=== PATIENT | male | born 1975 ===

== ENCOUNTER 2016-11-10 09:02 | Inpatient (IN) | payer OTHER ==
[2016-11-10 09:10] VITALS: BMI 31.9
[2016-11-10 10:04] LABS: BASO # 0.1 K/uL (0.0-0.2); BASO % 0.5 % (0.0-2.0); EOS # 0.5 K/uL (0.0-0.7); EOS % 3.4 % (0.0-4.0); HEMATOCRIT 45.4 % (35.0-51.0); LYMPH # 1.7 K/uL (1.0-4.3); LYMPH % 11.7 % (20.0-40.0); MEAN CELL VOLUME 87.7 fl (80.0-94.0); MEAN CORPUSCULAR HEMOGLOBIN 29.4 pg (27.0-31.0); MEAN CORPUSCULAR HGB CONC 33.5 g/dL (33.0-37.0); MEAN PLATELET VOLUME 9.7 fl (7.2-11.7); MONO # 1.4 K/uL (0.0-0.8); MONO % 9.6 % (0.0-10.0); NEUT # 10.6 K/uL (1.8-7.0); NEUT % 74.8 % (50.0-75.0); NRBC % 0.1 % (0.0-0.0); WHITE BLOOD COUNT 14.2 K/uL (4.8-10.8)
[2016-11-10] MEDS ORDERED: Sodium Chloride 0.9% 50 ML IV ONE (10:10)
[2016-11-10] MEDS ORDERED: Iohexol 300 100 ML IJ ONE (10:10)
--- NOTE | 2016-11-10 10:12 | ED PDOC ---
HPI: Abdomen Time Seen by Provider: 11/10/16 09:16 Chief Complaint (Nursing): Abdominal Pain Chief Complaint (Provider): Abdominal pain History Per: Patient History/Exam Limitations: no limitations Onset/Duration Of Symptoms: Days, Waxing/Waning, Persistent Current Symptoms Are (Timing): Still Present Quality Of Discomfort: "Pain" Associated Symptoms: denies: Fever, Chills, Nausea, Vomiting, Diarrhea, Constipation, Urinary Symptoms Additional History Per: Patient Additional Complaint(s): The patient is a 41yo male, presents to the ED for evaluation of abdominal pain , mid-left sided, worsening and present constantly for the pas week. He denies any associated nausea, vomiting, diarrhea, constipation, fever, chills. He also denies any dysuria, hematuria, and offers no additional medical complaints. Past Medical History Reviewed: Historical Data, Nursing Documentation, Vital Signs Vital Signs: Last Vital Signs Temp 98.7 F 11/12/16 07:41 Pulse 61 11/12/16 07:41 Resp 18 11/12/16 07:41 BP 111/68 11/12/16 07:41 Pulse Ox 96 11/12/16 07:41 - Surgical History Surgical History: No Surg Hx - Family History Family History: States: Unknown Family Hx - Social History Current smoker - smoking cessation education provided: No Alcohol: Occasional Drugs: Denies - Home Medications Home Medications: Ambulatory Orders Medication Instructions Recorded No Known Home Med 11/10/16 - Allergies Allergies/Adverse Reactions: Allergies Allergy/AdvReac Type Severity Reaction Status Date / Time No Known Allergies Allergy Verified 11/10/16 09:20 Review of Systems ROS Statement: Except As Marked, All Systems Reviewed And Found Negative Constitutional: Negative for: Fever, Chills Gastrointestinal: Positive for: Abdominal Pain. Negative for: Nausea, Vomiting , Diarrhea, Constipation Genitourinary Male: Negative for: Dysuria, Frequency, Hematuria Physical Exam - Reviewed Nursing Documentation Reviewed: Yes Vital Signs Reviewed: Yes - Physical Exam Appears: Positive for: Non-toxic, No Acute Distress Head Exam: Positive for: ATRAUMATIC, NORMAL INSPECTION, NORMOCEPHALIC Skin: Positive for: Warm Neck: Positive for: Supple Cardiovascular/Chest: Positive for: Regular Rate, Rhythm Respiratory: Positive for: Normal Breath Sounds. Negative for: Respiratory Distress Gastrointestinal/Abdominal: Positive for: Soft, Tenderness (generalized tenderness to left periumbilical region) Neurologic/Psych: Positive for: Alert, Oriented. Negative for: Motor/Sensory Deficits - Laboratory Results Result Diagrams: 11/12/16 05:40 11/12/16 05:40 - ECG O2 Sat by Pulse Oximetry: 97 (A) Pulse Ox Interpretation: Normal Medical Decision Making Medical Decision Making: Time: 1000 Impression: UTI, diverticulitis Plan: -- CT AP w/ contrast -- Labs -- EKG -- Morphine 2 mg Reassess Time: 1100 Patient to be placed in ED obs pending ER workup. Scribe Attestation: Documented by Alyce Yeung acting as a scribe for Nathalie Owen MD. Provider Attestation: All medical record entries made by the Scribe were at my direction and personally dictated by me. I have reviewed the chart and agree that the record accurately reflects my personal performance of the history, physical exam, medical decision making, and the department course for this patient. I have also personally directed, reviewed, and agree with the discharge instructions and disposition. ED OBSERVATION Date of observation admission: 11/10/16 Time of observation admission: 11:00 - Progress Note Progress Note: 11/10/16 12:30 Patient resting in room, no acute distress. 11/10/16 14:[address] scan, currently pending read. 11/10/16 15:10 CT AP IMPRESSION: Acute diverticulitis in the proximal sigmoid colon with significant pericolonic inflammatory changes. No evidence of micro perforation or abscess. Case discussed with Dr. Truong, patient to be admitted to OBS-Med/Surg. Disposition - Clinical Impression Clinical Impression: Acute diverticulitis - Disposition Disposition Time: 15:11 Condition: STABLE - Pt Status Changed To: Hospital Disposition Of: Observation - POA Present On Arrival: None
[2016-11-10 10:24] LABS: ALB/GLOB RATIO 1.4 (1.0-2.1); ALKALINE PHOSPHATASE 92 U/L (38-126); ALT/SGPT 45 U/L (21-72); AST/SGOT 29 U/L (17-59); BLOOD UREA NITROGEN 14 mg/dl (9-20); CALCIUM 9.6 mg/dL (8.4-10.2); CARBON DIOXIDE 22 mmol/L (22-30); CHLORIDE 103 mmol/L (98-107); GFR AFRICAN-AMERICAN > 60; GLUCOSE,RANDOM 113 mg/dL (75-110); LIPASE 118 U/L (23-300); POTASSIUM 4.1 MMOL/L (3.6-5.0); SODIUM 142 mmol/l (132-148); TOTAL PROTEIN 7.9 G/DL (6.3-8.2)
[2016-11-10 10:46] LABS: RBC URINE 1 /hpf (0-3); URINE BILIRUBIN NEGATIVE (NEGATIVE); URINE BLOOD NEGATIVE (NEGATIVE); URINE COLOR YELLOW (YELLOW); URINE GLUCOSE (UA) NEG (Normal); URINE KETONE NEGATIVE (NEGATIVE); URINE LEUKOCYTE ESTERASE NEG Leu/uL (Negative); URINE PROTEIN NEGATIVE (NEGATIVE); URINE UROBILINOGEN 0.2-1.0 mg/dL (0.2-1.0); WBC URINE < 1 /hpf (0-5)
[2016-11-10] MEDS ORDERED: Ciprofloxacin 400mg/200ml D5W 400 MG/200 ML BAG IV STA (15:04)
[2016-11-10] MEDS ORDERED: metroNIDAZOLE 500mg/100ml NS 100 ML IV STA (15:04)
--- NOTE | 2016-11-10 15:07 | CT ---
PROCEDURE: CT Abdomen and Pelvis with contrast HISTORY: Left-sided abdominal pain COMPARISON: None. TECHNIQUE: CT scan of the abdomen and pelvis was performed after intravenous administration of contrast. Oral contrast was not administered. Coronal and sagittal reformatted images were obtained. Contrast dose: 95 cc Omnipaque 300 Radiation dose: Total exam DLP = 1143.03 mGy-cm. This CT exam was performed using one or more of the following dose reduction techniques: Automated exposure control, adjustment of the mA and/or kV according to patient size, and/or use of iterative reconstruction technique. FINDINGS: LOWER THORAX: There is bibasilar subsegmental atelectasis. LIVER: The liver is normal in size and there is diffuse fatty infiltration. No gross lesion or ductal dilatation. GALLBLADDER AND BILE DUCTS: The gallbladder is well distended with There are no calcified gallstones, wall thickening or pericholecystic fluid. PANCREAS: The pancreas is normal in size and there is homogeneous enhancement without mass or ductal dilatation. SPLEEN: The spleen is normal in size and there is homogeneous enhancement without focal lesion. ADRENALS: Both adrenal glands are normal in size without discrete nodule. KIDNEYS AND URETERS: Both kidneys are normal in size and there is homogeneous enhancement without hydronephrosis or focal mass. VASCULATURE: No aortic aneurysm. BOWEL: The small bowel loops are normal in caliber. There is left colonic diverticulosis. There is severe circumferential mural thickening in the proximal sigmoid colon with significant pericolonic inflammatory changes. There is mild pericolonic fluid without micro perforation or drainable abscess. There is large amount of stool in the ascending colon with fecalization of distal small bowel contents and large amount of stool in the distal sigmoid colon. . APPENDIX: Normal appendix. PERITONEUM: Unremarkable. No free fluid. No free air. LYMPH NODES: There are enlarged left mesenteric lymph nodes, likely reactive. BLADDER: Grossly normal in appearance. REPRODUCTIVE: The prostate gland is normal in size. BONES: No acute fracture. Within normal limits for the patient's age. OTHER FINDINGS: None. IMPRESSION: Acute diverticulitis in the proximal sigmoid colon with significant pericolonic inflammatory changes. No evidence of micro perforation or abscess.
[2016-11-10] MEDS ORDERED: Ciprofloxacin 400mg/200ml D5W 400 MG/200 ML BAG IVPB ONE (15:24)
[2016-11-10] MEDS: Sodium Chloride 0.9% 1,000 ML IV SCH (22:37)
[2016-11-10] MEDS: Ciprofloxacin 400mg/200ml D5W 400 MG/200 ML BAG IVPB SCH (23:15)
[2016-11-11 06:16] LABS: HEMATOCRIT 44.4 % (35.0-51.0); MEAN CELL VOLUME 88.2 fl (80.0-94.0); MEAN CORPUSCULAR HEMOGLOBIN 28.9 pg (27.0-31.0); MEAN CORPUSCULAR HGB CONC 32.8 g/dL (33.0-37.0); RED CELL DISTRIBUTION WIDTH 14.2 % (11.5-14.5); WHITE BLOOD COUNT 13.2 K/uL (4.8-10.8)
[2016-11-11 06:32] LABS: ALB/GLOB RATIO 1.3 (1.0-2.1); ALKALINE PHOSPHATASE 80 U/L (38-126); ALT/SGPT 39 U/L (21-72); AST/SGOT 19 U/L (17-59); BLOOD UREA NITROGEN 10 mg/dl (9-20); CALCIUM 9.1 mg/dL (8.4-10.2); CARBON DIOXIDE 27 mmol/L (22-30); CHLORIDE 100 mmol/L (98-107); GFR AFRICAN-AMERICAN > 60; GLUCOSE,RANDOM 118 mg/dL (75-110); POTASSIUM 3.8 MMOL/L (3.6-5.0); SODIUM 140 mmol/l (132-148); TOTAL PROTEIN 7.4 G/DL (6.3-8.2)
[2016-11-11] MEDS: Sodium Chloride 0.9% 1,000 ML IV SCH (08:37)
--- NOTE | 2016-11-11 08:41 | CARD ---
APPROVED REPORT EKG Measurement Heart [id number] <Conclusion> Normal sinus rhythm Normal ECG
[2016-11-11] MEDS: Ciprofloxacin 400mg/200ml D5W 400 MG/200 ML BAG IVPB SCH ×2 (08:50→20:35)
--- NOTE | 2016-11-11 14:16 | CP.PCM.HP ---
<Jose Orosco - Last Filed: 11/11/16 14:17> History of Present Illness - History of Present Illness History of Present Illness: 41 yo male with unremarkable PMHx presented to the [facility] ED for evaluation of abdominal pain. The pain started about 1 week ago and has been worsening. It is primairly located around the LLQ/LUQ and 8/10. It is nonradaiting. Crampy in character. Alleviated with rest. Exacerbated with movement. No associated fever/ chills, CP/SOB/palpitations, N/V/D/C urinary symptoms. Present on Admission - Present on Admission Any Indicators Present on Admission: No Review of Systems - Review of Systems Review of Systems: as per HPI Past Patient History - Infectious Disease Hx of Infectious Diseases: None - Past Medical History & Family History Past Medical History?: No - Past Social History Smoking Status: Never Smoked - CARDIAC Hx Cardiac Disorders: No - PULMONARY Hx Respiratory Disorders: No - NEUROLOGICAL Hx Neurological Disorder: No - HEENT Hx HEENT Problems: No - RENAL Hx Chronic Kidney Disease: No - ENDOCRINE/METABOLIC Hx Endocrine Disorders: No - HEMATOLOGICAL/ONCOLOGICAL Hx Blood Disorders: No - INTEGUMENTARY Hx Dermatological Problems: No - MUSCULOSKELETAL/RHEUMATOLOGICAL Hx Musculoskeletal Disorders: No Hx Falls: No - GASTROINTESTINAL Hx Gastrointestinal Disorders: No - GENITOURINARY/GYNECOLOGICAL Hx Genitourinary Disorders: No - PSYCHIATRIC Hx Psychophysiologic Disorder: No Hx Substance Use: No - SURGICAL HISTORY Hx Surgeries: No - ANESTHESIA Hx Anesthesia: No Meds Allergies/Adverse Reactions: Allergies Allergy/AdvReac Type Severity Reaction Status Date / Time No Known Allergies Allergy Verified 11/10/16 09:20 Physical Exam - Constitutional Appears: Non-toxic, No Acute Distress - Eye Exam Eye Exam: EOMI. absent: Conjunctival injection, Scleral icterus Pupil Exam: PERRL - ENT Exam ENT Exam: Mucous Membranes Moist - Respiratory Exam Respiratory Exam: Clear to Auscultation Bilateral, NORMAL BREATHING PATTERN. absent: Rales, Rhonchi, Wheezes - Cardiovascular Exam Cardiovascular Exam: REGULAR RHYTHM, RRR, +S1, +S2. absent: Gallop, JVD, Rubs, Systolic Murmur - GI/Abdominal Exam GI & Abdominal Exam: Guarding, Normal Bowel Sounds, Soft, Tenderness. absent: Distended, Firm, Hernia, Rebound, Rigid - Extremities Exam Extremities exam: Positive for: normal inspection, pedal pulses present. Negative for: pedal edema, tenderness - Neurological Exam Neurological exam: Alert, CN II-XII Intact, Oriented x3 - Skin Skin Exam: Dry, Intact, Normal Color, Warm Results - Vital Signs Recent Vital Signs: Last Vital Signs Temp 98.6 F 11/11/16 08:29 Pulse 82 11/11/16 08:29 Resp 20 11/11/16 08:29 BP 129/73 11/11/16 08:29 Pulse Ox 95 11/11/16 08:29 - Labs Result Diagrams: 11/11/16 05:45 11/11/16 05:45 Labs: Laboratory Results - last 24 hr 11/11/16 11/11/16 05:45 05:45 WBC 13.2 H RBC 5.04 Hgb 14.6 Hct 44.4 MCV 88.2 MCH 28.9 MCHC 32.8 L RDW 14.2 Plt Count 142 Sodium 140 Potassium 3.8 Chloride 100 Carbon Dioxide 27 Anion Gap 17 BUN 10 Creatinine 0.8 Est GFR ( Amer) > 60 Est GFR (Non-Af Amer) > 60 Random Glucose 118 H Calcium 9.1 Total Bilirubin 1.0 AST 19 ALT 39 Alkaline Phosphatase 80 Total Protein 7.4 Albumin 4.1 Globulin 3.3 Albumin/Globulin Ratio 1.3 Assessment & Plan (1) Diverticulitis Assessment and Plan: uncomplicated diverticulitis IV Hydration IV Abx as ordered (cipro/flagyl) Pain management advance diet (CLD) as tolerated monitor vitals serial CBC/CMP Case discussed and pt examined with attending. Status: Acute <Truong,Malcolm K - Last Filed: 11/11/16 16:31> Results - Vital Signs Recent Vital Signs: Last Vital Signs Temp 98.7 F 11/11/16 16:19 Pulse 71 11/11/16 16:19 Resp 20 11/11/16 16:19 BP 117/71 11/11/16 16:19 Pulse Ox 96 11/11/16 16:19 - Labs Result Diagrams: 11/11/16 05:45 11/11/16 05:45 Labs: Laboratory Results - last 24 hr 11/11/16 11/11/16 05:45 05:45 WBC 13.2 H RBC 5.04 Hgb 14.6 Hct 44.4 MCV 88.2 MCH 28.9 MCHC 32.8 L RDW 14.2 Plt Count 142 Sodium 140 Potassium 3.8 Chloride 100 Carbon Dioxide 27 Anion Gap 17 BUN 10 Creatinine 0.8 Est GFR ( Amer) > 60 Est GFR (Non-Af Amer) > 60 Random Glucose 118 H Calcium 9.1 Total Bilirubin 1.0 AST 19 ALT 39 Alkaline Phosphatase 80 Total Protein 7.4 Albumin 4.1 Globulin 3.3 Albumin/Globulin Ratio 1.3 Assessment & Plan - Assessment and Plan (Free Text) Assessment: Patient was personally seen and examined by me in rounds with residents. Available labs and diagnostic data reviewed. Case, Patient's condition and management plan Discussed with residents in rounds. Agree with resident's progress note. Plan: As ordered.
[2016-11-12] MEDS: Sodium Chloride 0.9% 1,000 ML IV SCH (00:09)
[2016-11-12 07:12] LABS: HEMATOCRIT 44.4 % (35.0-51.0); MEAN CELL VOLUME 88.9 fl (80.0-94.0); MEAN CORPUSCULAR HEMOGLOBIN 29.5 pg (27.0-31.0); MEAN CORPUSCULAR HGB CONC 33.2 g/dL (33.0-37.0); WHITE BLOOD COUNT 8.8 K/uL (4.8-10.8)
[2016-11-12 07:23] LABS: BLOOD UREA NITROGEN 10 mg/dl (9-20); CALCIUM 9.5 mg/dL (8.4-10.2); CARBON DIOXIDE 28 mmol/L (22-30); CHLORIDE 103 mmol/L (98-107); GFR AFRICAN-AMERICAN > 60; GLUCOSE,RANDOM 91 mg/dL (75-110); POTASSIUM 5.1 MMOL/L (3.6-5.0); SODIUM 144 mmol/l (132-148)
[2016-11-12] MEDS: Ciprofloxacin 400mg/200ml D5W 400 MG/200 ML BAG IVPB SCH ×2 (09:36→21:23)
--- NOTE | 2016-11-12 15:46 | PN ---
DATE: 11/12/2016 SUBJECTIVE: The patient is seen and examined. Interim events noted. Consults noted and appreciated. The patient remains in regular medical floor, feels better, abdominal pain. No nausea, vomiting, diarrhea or any blood in stool. PHYSICAL EXAMINATION GENERAL: The patient is in no acute distress. VITAL SIGNS: Stable. HEART: S1 and S2, normal and regular. LUNGS: Good bilateral air entry. ABDOMEN: Soft and nontender. Abdominal exam shows little sensitivity on left lower quadrant, but no sign of acute abdomen. No guarding, no rigidity, no rebound. EXTREMITIES: No edema. No calf swelling. No tenderness. No acute ischemia. CENTRAL NERVOUS SYSTEMS: Exam is essentially unchanged. DIAGNOSTIC DATA: Available diagnostic data reviewed. IMPRESSION: Overall, the patient's general medical condition is stable and improving. PLAN: As ordered. Malcolm Truong MD
[2016-11-13 07:53] LABS: ALB/GLOB RATIO 1.2 (1.0-2.1); ALKALINE PHOSPHATASE 77 U/L (38-126); ALT/SGPT 34 U/L (21-72); AST/SGOT 19 U/L (17-59); BILIRUBIN,TOTAL 0.8 mg/dl (0.2-1.3); BLOOD UREA NITROGEN 13 mg/dl (9-20); CALCIUM 9.9 mg/dL (8.4-10.2); CARBON DIOXIDE 27 mmol/L (22-30); CHLORIDE 102 mmol/L (98-107); GFR AFRICAN-AMERICAN > 60; GLUCOSE,RANDOM 91 mg/dL (75-110); HEMATOCRIT 46.7 % (35.0-51.0); MEAN CELL VOLUME 87.9 fl (80.0-94.0); MEAN CORPUSCULAR HEMOGLOBIN 29.3 pg (27.0-31.0); MEAN CORPUSCULAR HGB CONC 33.3 g/dL (33.0-37.0); POTASSIUM 4.1 MMOL/L (3.6-5.0); RED CELL DISTRIBUTION WIDTH 13.6 % (11.5-14.5); SODIUM 144 mmol/l (132-148); TOTAL PROTEIN 7.9 G/DL (6.3-8.2); WHITE BLOOD COUNT 7.8 K/uL (4.8-10.8)
[2016-11-13] MEDS: Ciprofloxacin 400mg/200ml D5W 400 MG/200 ML BAG IVPB SCH ×2 (08:42→21:02)
--- NOTE | 2016-11-13 15:23 | CP.PCM.CON ---
<Alirio Nevarez - Last Filed: 11/13/16 15:19> History of Present Illness - History of Present Illness History of Present Illness: PGY4 Initial GI consult Rusty Palencia is a 41 yo male with no sig PMHx presented to the [facility] ED for evaluation of abdominal pain. The pain started about 1 week ago and has been worsening. It is primarily located around the LLQ/LUQ and he initially rated it 8/10. It is nonradaiting and describes it as Crampy in character.Denies any aggravating or alleviating factors. No associated fever/chills. Pt states that he has not has a BM in 3 days, but prior to that has had daily BM. Denies any BRBPR, melena or mucus. CT abd w/ IV contrast revealed uncomplicated sigmoid diverticultitis. Pt is on abx and tolerating clears. PMHx: Denies PSHX: Denies Family hx: Denies any hx of colon ca Endoscopy hx: none Past Patient History - Infectious Disease Hx of Infectious Diseases: None - Past Medical History & Family History Past Medical History?: No - Past Social History Alcohol: Occasional Drugs: Denies - CARDIAC Hx Cardiac Disorders: No - PULMONARY Hx Respiratory Disorders: No - NEUROLOGICAL Hx Neurological Disorder: No - HEENT Hx HEENT Problems: No - RENAL Hx Chronic Kidney Disease: No - ENDOCRINE/METABOLIC Hx Endocrine Disorders: No - HEMATOLOGICAL/ONCOLOGICAL Hx Blood Disorders: No - INTEGUMENTARY Hx Dermatological Problems: No - MUSCULOSKELETAL/RHEUMATOLOGICAL Hx Musculoskeletal Disorders: No Hx Falls: No - GASTROINTESTINAL Hx Gastrointestinal Disorders: No - GENITOURINARY/GYNECOLOGICAL Hx Genitourinary Disorders: No - PSYCHIATRIC Hx Psychophysiologic Disorder: No Hx Substance Use: No - SURGICAL HISTORY Hx Surgeries: No - ANESTHESIA Hx Anesthesia: No Meds Allergies/Adverse Reactions: Allergies Allergy/AdvReac Type Severity Reaction Status Date / Time No Known Allergies Allergy Verified 11/10/16 09:20 - Medications Medications: Current Medications Ciprofloxacin (Cipro 400mg/200ml Dsw) 400 mg in 200 mls @ 200 mls/hr IVPB Q12 [facility] Last Admin: 11/13/16 08:42 Dose: 200 mls/hr Metronidazole (Flagyl) 500 mg PO Q8 [facility] Last Admin: 11/13/16 08:42 Dose: 500 mg Morphine Sulfate (Morphine) 2 mg IVP Q4 PRN PRN Reason: Pain, moderate (4-7) Last Admin: 11/11/16 08:49 Dose: 2 mg Pantoprazole Sodium (Protonix Inj) 40 mg IVP DAILY [facility] Last Admin: 11/13/16 08:42 Dose: 40 mg Physical Exam - Constitutional Appears: Well, No Acute Distress - Head Exam Head Exam: ATRAUMATIC, NORMOCEPHALIC - Eye Exam Eye Exam: Normal appearance - ENT Exam ENT Exam: Mucous Membranes Moist - Respiratory Exam Respiratory Exam: Clear to Auscultation Bilateral, NORMAL BREATHING PATTERN. absent: Rales, Rhonchi, Wheezes, Respiratory Distress - Cardiovascular Exam Cardiovascular Exam: REGULAR RHYTHM, +S1, +S2 - GI/Abdominal Exam GI & Abdominal Exam: Normal Bowel Sounds, Soft. absent: Guarding, Rebound, Rigid, Tenderness - Psychiatric Exam Psychiatric exam: Normal Affect, Normal Mood - Skin Skin Exam: Dry, Intact, Normal Color, Warm Results - Vital Signs Recent Vital Signs: Last Vital Signs Temp 98.3 F 11/13/16 07:27 Pulse 61 11/13/16 07:27 Resp 20 11/13/16 07:27 BP 110/67 11/13/16 07:27 Pulse Ox 96 11/13/16 07:27 - Labs Result Diagrams: 11/13/16 06:45 11/13/16 06:45 Labs: Laboratory Results - last 24 hr 11/13/16 11/13/16 06:45 06:45 WBC 7.8 RBC 5.32 Hgb 15.6 Hct 46.7 MCV 87.9 MCH 29.3 MCHC 33.3 RDW 13.6 Plt Count 187 Sodium 144 Potassium 4.1 Chloride 102 Carbon Dioxide 27 Anion Gap 20 BUN 13 Creatinine 0.8 Est GFR ( Amer) > 60 Est GFR (Non-Af Amer) > 60 Random Glucose 91 Calcium 9.9 Total Bilirubin 0.8 AST 19 ALT 34 Alkaline Phosphatase 77 Total Protein 7.9 Albumin 4.3 Globulin 3.6 Albumin/Globulin Ratio 1.2 Assessment & Plan - Assessment and Plan (Free Text) Assessment: Rusty Palencia is a 41M w/ no sig hx who presents with LLQ pain. Etiology is likely uncomplicated sigmoid diverticulitis based on CT 1. Uncomplicated Sigmoid Diverticulitis Plan: -continue cipro/flagyl for 10 days total -follow-up as an oupt with Dr. 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 anthony <Dianne Anthony MD - Last Filed: 11/13/16 17:51> Meds - Medications Medications: Current Medications Ciprofloxacin (Cipro 400mg/200ml Dsw) 400 mg in 200 mls @ 200 mls/hr IVPB Q12 [facility] Last Admin: 11/13/16 08:42 Dose: 200 mls/hr Metronidazole (Flagyl) 500 mg PO Q8 [facility] Last Admin: 11/13/16 16:21 Dose: 500 mg Morphine Sulfate (Morphine) 2 mg IVP Q4 PRN PRN Reason: Pain, moderate (4-7) Last Admin: 11/11/16 08:49 Dose: 2 mg Pantoprazole Sodium (Protonix Inj) 40 mg IVP DAILY [facility] Last Admin: 11/13/16 08:42 Dose: 40 mg Results - Vital Signs Recent Vital Signs: Last Vital Signs Temp 98.5 F 11/13/16 16:04 Pulse 64 11/13/16 16:04 Resp 19 11/13/16 16:04 BP 116/75 11/13/16 16:04 Pulse Ox 95 11/13/16 16:04 - Labs Result Diagrams: 11/13/16 06:45 11/13/16 06:45 Labs: Laboratory Results - last 24 hr 11/13/16 11/13/16 06:45 06:45 WBC 7.8 RBC 5.32 Hgb 15.6 Hct 46.7 MCV 87.9 MCH 29.3 MCHC 33.3 RDW 13.6 Plt Count 187 Sodium 144 Potassium 4.1 Chloride 102 Carbon Dioxide 27 Anion Gap 20 BUN 13 Creatinine 0.8 Est GFR ( Amer) > 60 Est GFR (Non-Af Amer) > 60 Random Glucose 91 Calcium 9.9 Total Bilirubin 0.8 AST 19 ALT 34 Alkaline Phosphatase 77 Total Protein 7.9 Albumin 4.3 Globulin 3.6 Albumin/Globulin Ratio 1.2 Attending/Attestation - Attestation I have personally seen and examined this patient.: Yes I have fully participated in the care of the patient.: Yes I have reviewed all pertinent clinical information: Yes Notes (Text): 11/13/16 17:47 Patient seen with GI fellow on rounds this am. This is a 41 yr old M who presents with LLQ pain due to uncomplicated sigmoid diverticulitis based on CT. leukocytosis resolving. can transition IV antibiotics to po antibiotics to complete 10 day course and advance diet. Will follow with me in office in 2 weeks for outpatient colonoscopy
[2016-11-14 00:18] VITALS: O2SAT 96
--- NOTE | 2016-11-14 01:52 | PN ---
DATE: 11/13/2016 SUBJECTIVE: The patient is seen and examined. Interim events noted. The patient remains on regular medical floor. The patient feels okay. Denies any specific complaint of chest pain or shortness of breath. Abdominal pain is present, but improving. The patient tolerated liquids. PHYSICAL EXAMINATION: GENERAL: The patient is in no acute distress. VITAL SIGNS: Stable. HEART: S1 and S2, normal and regular. LUNGS: Good bilateral air entry. ABDOMEN: Soft, nontender. There is no sign of acute abdomen. No guarding. No rigidity. No rebound. Bowel sounds are present and normal. EXTREMITIES: No edema. No calf swelling. No tenderness. No acute ischemia. CENTRAL NERVOUS SYSTEM: Essentially unchanged. DIAGNOSTIC DATA: Available diagnostic data reviewed. ASSESSMENT: Overall, the patient's general medical condition is slowly improving. PLAN: As ordered. Malcolm Truong MD
[2016-11-14 06:28] LABS: HEMATOCRIT 47.4 % (35.0-51.0); MEAN CELL VOLUME 87.5 fl (80.0-94.0); MEAN CORPUSCULAR HEMOGLOBIN 29.6 pg (27.0-31.0); MEAN CORPUSCULAR HGB CONC 33.8 g/dL (33.0-37.0); RED CELL DISTRIBUTION WIDTH 13.7 % (11.5-14.5); WHITE BLOOD COUNT 8.2 K/uL (4.8-10.8)
[2016-11-14 06:39] LABS: ALB/GLOB RATIO 1.2 (1.0-2.1); ALKALINE PHOSPHATASE 77 U/L (38-126); ALT/SGPT 26 U/L (21-72); AST/SGOT 21 U/L (17-59); BILIRUBIN,TOTAL 0.8 mg/dl (0.2-1.3); BLOOD UREA NITROGEN 16 mg/dl (9-20); CALCIUM 9.8 mg/dL (8.4-10.2); CARBON DIOXIDE 27 mmol/L (22-30); CHLORIDE 100 mmol/L (98-107); GFR AFRICAN-AMERICAN > 60; GLUCOSE,RANDOM 102 mg/dL (75-110); POTASSIUM 4.8 MMOL/L (3.6-5.0); SODIUM 142 mmol/l (132-148); TOTAL PROTEIN 7.7 G/DL (6.3-8.2)
[2016-11-14 07:30] VITALS: BP 122/81; PULSE 58; RESP 20; TEMP 98.5
[2016-11-14] MEDS: Ciprofloxacin 400mg/200ml D5W 400 MG/200 ML BAG IVPB SCH (08:21)
--- NOTE | 2016-11-14 13:01 | PN ---
DATE: 11/14/2016 SUBJECTIVE: The patient is seen and examined. Interim events noted. Consults noted and appreciated. Gastroenterology intervention noted and appreciated. The patient feels much better, tolerated diet very well, has not moved bowel yet, but he is passing gas. No chest pain, no shortness of breath. The patient is ambulatory, doing his ADL without any problem. PHYSICAL EXAMINATION: GENERAL: The patient is in no acute distress. VITAL SIGNS: Stable. HEART: S1 and S2 normal and regular. LUNGS: Good bilateral air exchange. ABDOMEN: Soft, nontender. No organomegaly. No fluid. Bowel sounds are plus. No sign of acute abdomen. No guarding. No rigidity. No rebound. Previously noted left lower quadrant tenderness has also resolved. EXTREMITIES: No edema. No calf swelling. No tenderness. No acute ischemia. CENTRAL NERVOUS SYSTEM: Essentially unchanged. DIAGNOSTIC DATA: Available diagnostic data reviewed. WBC has returned to normal. ASSESSMENT AND PLAN: Overall, the patient is medically stable. We will consider discharging the patient today. Plan as ordered. Case and plan was discussed with the patient. Malcolm Truong MD
== END 2016-11-14 13:20 | disposition home or self-care (01) | DRG 392 ==
LOC: H.ER 09:02 → H.EROBSV 14:00 → H.ERHOLD 16:13 → H.MEDSURG1 17:32 → OBSVTOIN 11-11 13:34 → H.MEDSURG1 11-12 16:53
PROVIDERS: ADMIT Internal Medicine; ATTEND Internal Medicine
DX: K57.32 Diverticulitis of large intestine without perforation or abscess without bleeding (principal); N39.0 Urinary tract infection, site not specified

== ENCOUNTER 2017-01-10 07:28 | Day surgery (SDC) | payer OTHER ==
[2017-01-10] MEDS ORDERED: Lactated Ringer's 500 ML IV ONE (07:59)
[2017-01-10] MEDS ORDERED: Propofol 10 mg/ml Inj (20 ML) ONE (09:30)
[2017-01-10] MEDS ORDERED: Lidocaine 2% MPF (5 ml) Inj ONE (09:31)
[2017-01-10 10:09] VITALS: BP 115/69; PULSE 76; RESP 15; TEMP 98; O2SAT 98
== END 2017-01-10 10:27 | disposition home or self-care (01) ==
LOC: H.ENDO 07:28
PROVIDERS: ATTEND Internal Medicine Gastroenterology
DX: K57.32 Diverticulitis of large intestine without perforation or abscess without bleeding (principal); G47.30 Sleep apnea, unspecified; K64.0 First degree hemorrhoids; K57.30 Diverticulosis of large intestine without perforation or abscess without bleeding
CPT/HCPCS: 45378; J2704; J7120